=== PATIENT | female | born 1945 | race Caucasian/White ===

== ENCOUNTER 2017-08-13 13:51 | Emergency (ER) | payer MEDICARE ==
[2017-08-13 13:58] VITALS: TEMP 98.5; BMI 27.4
[2017-08-13] MEDS ORDERED: IBUPROFEN 600 MG TABLET (FP) PO ONE ×2 (14:09→14:17)
--- NOTE | 2017-08-13 14:09 | PDOC ---
History of Present Illness - History of Present Illness Initial Comments: 08/13/17 14:26 The patient is a 71 year old female, with a significant past medical history of schizophrenia, who presents to the emergency department with left shoulder pain s/p fall. Patient came to the ER after tripping over a curb earlier today and injuring her left shoulder. Patient states that she fell forward and injured her left shoulder. She states her shoulder pain was so severe that she was unable to ambulate immediately after and had to yell for assistance. She states that she normally is able to ambulate without assistance. She also has a scratch on the left side of her chin. She denies hitting head, LOC, denies neck pain, denies new back pain. She denies recent fevers, chills, headache or dizziness. She denies recent nausea, vomit, diarrhea or constipation. She denies recent dysuria, frequency, urgency or hematuria. She denies recent chest pain or shortness of breath. Allergies: NKA PCP: Dr. Jules Escobedo [phone] <Janet Ferrera - Last Filed: 08/13/17 16:25> <Clair Dee - Last Filed: 08/13/17 16:55> - General Chief Complaint: Pain, Acute Stated Complaint: left shoulder pain Past History <Janet Ferrera - Last Filed: 08/13/17 16:25> - Past Medical History Diabetes: Yes HTN: Yes - Suicide/Smoking/Psychosocial Hx Smoking History: Never smoked Hx Alcohol Use: No Drug/Substance Use Hx: No Substance Use Type: None <Clair Dee - Last Filed: 08/13/17 16:55> - Past Medical History Allergies/Adverse Reactions: Allergies Allergy/AdvReac Type Severity Reaction Status Date / Time Penicillins Allergy Verified 08/13/17 13:53 Home Medications: Ambulatory Orders Ibuprofen [Motrin -] 600 mg PO TID #90 tablet 08/13/17 Losartan Potassium [Cozaar] 25 mg PO DAILY 08/13/17 Metformin HCl [Glucophage] 1,000 mg PO BID 08/13/17 Review of Systems - Review of Systems Comments:: 08/13/17 14:26 GENERAL/CONSTITUTIONAL: No fever or chills. No weakness. HEAD, EYES, EARS, NOSE AND THROAT: No change in vision. No ear pain or discharge. No sore throat. GASTROINTESTINAL: No nausea, vomiting, diarrhea or constipation. GENITOURINARY: No dysuria, frequency, or change in urination. CARDIOVASCULAR: No chest pain or shortness of breath. RESPIRATORY: No cough, wheezing, or hemoptysis. MUSCULOSKELETAL: + left shoulder pain. No neck or back pain. SKIN: + superficial scratch on chin NEUROLOGIC: No headache, vertigo, loss of consciousness, or change in strength/ sensation. ENDOCRINE: No increased thirst. No abnormal weight change. HEMATOLOGIC/LYMPHATIC: No anemia, easy bleeding, or history of blood clots. ALLERGIC/IMMUNOLOGIC: No hives or skin allergy. <Janet Ferrera - Last Filed: 08/13/17 16:25> *Physical Exam - Vital Signs Last Vital Signs Temp Pulse Resp BP Pulse Ox 98.5 F 82 18 174/86 95 08/13/17 13:52 08/13/17 13:52 08/13/17 13:52 08/13/17 13:52 08/13/17 13:52 - Physical Exam Comments: 08/13/17 14:27 GENERAL: Awake, alert, and fully oriented, in no acute distress HEAD: Atraumatic. EYES: PERRLA, EOMI, sclera anicteric, conjunctiva clear ENT: Auricles normal inspection, nares patent, Moist mucosa NECK: No midline tenderness. Normal ROM, supple, no lymphadenopathy, JVD, or masses LUNGS: No chest wall tenderness. Breath sounds equal, clear to auscultation bilaterally. No wheezes, and no crackles. HEART: Regular rate and rhythm, normal S1 and S2, no murmurs, rubs or gallops ABDOMEN: Soft, nontender, normoactive bowel sounds. No guarding, no rebound. No masses EXTREMITIES: Left TTP decreased ROM secondary to pain. Pelvis intact. Hip FROM. Normal range of motion, no edema. No clubbing or cyanosis. No cords, erythema, or tenderness NEUROLOGICAL: Normal speech SKIN: Superficial abrasion on left side of chin. Warm, Dry, normal turgor. <Janet Ferrera - Last Filed: 08/13/17 16:25> - Vital Signs Last Vital Signs Temp Pulse Resp BP Pulse Ox 98.5 F 82 18 174/86 95 08/13/17 13:52 08/13/17 13:52 08/13/17 13:52 08/13/17 13:52 08/13/17 13:52 <Clair Dee - Last Filed: 08/13/17 16:55> ED Treatment Course - Medications Given in the ED: ED Medications Discontinued Medications Generic Name Dose Route Start Last Admin Trade Name Terese PRN Reason Stop Dose Admin Ibuprofen 600 mg 08/13/17 14:09 08/13/17 14:25 Motrin - PO 08/13/17 14:10 600 mg ONCE ONE Administration <Janet Ferrera - Last Filed: 08/13/17 16:25> Medical Decision Making - Medical Decision Making 08/13/17 14:08 71 yo F s/p trip and fall over curb. c/o left shoulder pain. no loc no head trauma.no neck or back tendernss. exam significant for left shoulder ttp. decr rom secondary to pain/ elbow and wrist nt nd. plan xray r/o fx. pain control. 08/13/17 16:32 xray pos humerus fx. pt given sling. ambulating without difficulty. d.w pcp dr paul. pedro see pt outpt. d/w noe. will see this week. social wrk for pat as she requesting help at home. <Clair Dee - Last Filed: 08/13/17 16:55> *DC/Admit/Observation/Transfer - Attestations Scribe Attestion: 08/13/17 14:27 Documentation prepared by Janet Ferrera, acting as medical technician assistant for Clair Dee MD. <Janet Ferrera - Last Filed: 08/13/17 16:25> <Clair Dee - Last Filed: 08/13/17 16:55> Diagnosis at time of Disposition: Humeral fracture - Discharge Dispostion Disposition: HOME Condition at time of disposition: Improved - Prescriptions Prescriptions: Ibuprofen [Motrin -] 600 mg PO TID #90 tablet - Referrals Referrals: Gilbert Sanchez MD [Staff Physician] - - Patient Instructions Printed Discharge Instructions: How to Use a Sling, DI for Humeral Fracture Additional Instructions: you should wear sling until follow up with dr sanchez. take motrin 600mg with food every 8 hrs as needed for pain. return for any problems or concerns.
[2017-08-13 16:52] VITALS: BP 148/80; PULSE 80
== END 2017-08-13 16:59 | disposition home or self-care (01) ==
LOC: FER 13:51
DX: S42.302A Unspecified fracture of shaft of humerus, left arm, initial encounter for closed fracture (principal); W18.39XA Other fall on same level, initial encounter; Y93.89 Activity, other specified; Y92.9 Unspecified place or not applicable; F20.9 Schizophrenia, unspecified; E11.9 Type 2 diabetes mellitus without complications; I10 Essential (primary) hypertension
CPT/HCPCS: 73030-TC-LT; 99282-25

== ENCOUNTER 2022-09-08 19:00 | Emergency (ER) | payer OTHER ==
[2022-09-08 19:18] VITALS: BP 150/73; PULSE 106; RESP 20; TEMP 98.6; BMI 27.3
[2022-09-08 21:19] LABS: HEMATOCRIT 36.9 % (32.4-45.2); HEMOGLOBIN 12.5 G/dL (10.7-15.3); MCH 28.8 pg (25.7-33.7); MCHC 33.8 g/dl (32.0-36.0); MEAN CELL VOLUME 85.1 fl (80-96); MEAN PLT VOLUME 7.3 fl (7.5-11.1); PLATELET COUNT 283.3 10^3/uL (134-434); RBC 4.34 10^6/uL (3.60-5.2); RDW 13.6 % (11.6-15.6); WHITE BLOOD COUNT 11.5 10^3/uL (4.0-10.8)
[2022-09-08 21:28] LABS: ALBUMIN 3.6 g/dl (3.4-5.0); BILIRUBIN,TOTAL 0.7 mg/dl (0.2-1); CALCIUM 9.6 mg/dl (8.5-10); CREATININE 0.8 mg/dl (0.55-1.3)
[2022-09-08 22:59] LABS: PLATELET ESTIMATE ADEQUATE
[2022-09-08 23:12] LABS: EPITHELIAL CELLS FEW /hpf
[2022-09-08] MEDS ORDERED: ACETAMINOPHEN 1000 MG/100 ML BAG IVPB ONE (23:33)
== END 2022-09-09 01:11 | disposition home or self-care (01) ==
LOC: FER 19:00
PROC: 3E033GC Introduction of Other Therapeutic Substance into Peripheral Vein, Percutaneous Approach (ICD-10-PCS; principal; 2022-09-08)
DX: H57.13 Ocular pain, bilateral (principal); U07.1 COVID-19
CPT/HCPCS: 0241U-QW; 36415; 70450-TC; 80053; 81003; 81015; 85027; 85651; 86140; 99284-25

== ENCOUNTER 2024-09-24 08:12 | Observation (INO) | payer OTHER ==
[2024-09-24 08:39] VITALS: BMI 22.8
[2024-09-24 09:06] LABS: INR 0.94 (0.83-1.09); PROTHROMBIN TIME (PATIENT) 10.7 SEC (9.7-13.0)
[2024-09-24 09:08] LABS: ACTIVATED PTT 30.9 SECONDS (25.2-36.5)
[2024-09-24 09:10] LABS: HEMATOCRIT 38.7 % (32.4-45.2); MCH 29.4 pg (25.7-33.7); MCHC 33.5 g/dl (32.0-36.0); MEAN CELL VOLUME 87.5 fl (80-96); MEAN PLT VOLUME 8.1 fl (7.5-11.1); PLATELET COUNT 279.4 10^3/uL (134-434); RBC 4.42 10^6/uL (3.60-5.2); RDW 13.2 % (11.6-15.6); WHITE BLOOD COUNT 7.4 10^3/uL (4.0-10.8)
[2024-09-24 09:15] LABS: PLATELET ESTIMATE ADEQUATE
[2024-09-24 09:20] LABS: ALBUMIN 4.1 g/dl (3.4-5.0); BILIRUBIN,TOTAL 0.6 mg/dl (0.2-1); CALCIUM 10.1 mg/dl (8.5-10.1); CREATININE 0.7 mg/dl (0.6-1.3); POTASSIUM 4.6 mmol/L (3.5-5.1); TOT PROT 6.4 g/dl (6.4-8.2)
[2024-09-24] MEDS: SODIUM CHLORIDE 0.9% 500 ML INFUS.BAG IV ONE (09:28)
[2024-09-24 09:33] LABS: EPITHELIAL CELLS 0-5 /hpf
[2024-09-24 11:00] LABS: N-TERMINAL BNP 169.4 pg/ml (5-450)
[2024-09-24 15:08] LABS: CHOLESTEROL 134 mg/dL (50-200); HDL CHOLESTEROL 51 mg/dL (40-60); LDL CHOLESTEROL (ONLY DFH) 66 mg/dL (5-100)
[2024-09-24] MEDS: INSULIN ASPART SLIDING SCALE (NOVOLOG) 1 VIAL SQ SCH (17:07)
[2024-09-24] MEDS: TIMOLOL 0.5% OPHTHALMIC SOL 5 ML BOTTLE OU SCH (21:37)
[2024-09-25] MEDS: metFORMIN HCL 500 MG TABLET (FP) PO SCH (06:26)
[2024-09-25 09:01] LABS: ALBUMIN 4.1 g/dl (3.4-5.0); BILIRUBIN,TOTAL 0.6 mg/dl (0.2-1); CALCIUM 10.5 mg/dl (8.5-10.1); CREATININE 0.7 mg/dl (0.6-1.3); MAGNESIUM 1.5 mg/dL (1.8-2.4); PHOSPHOROUS 3.3 (2.5-4.9); POTASSIUM 4.4 mmol/L (3.5-5.1); TOT PROT 6.4 g/dl (6.4-8.2)
[2024-09-25] MEDS ORDERED: MAGNESIUM SULF 50% (8.12 MEQ/2 ML-1 GM VIAL) IVPB ONE (09:33)
[2024-09-25] MEDS: NITROFURANTOIN MONOHYD/M-CRYST 100 MG CAPSULE PO SCH (09:35)
[2024-09-25] MEDS: ENOXAPARIN NA (PORCINE) 40 MG/0.4 ML DISP.SYRIN SQ SCH (09:35)
[2024-09-25] MEDS: LOSARTAN POTASSIUM 25 MG TABLET PO SCH (09:35)
[2024-09-25] MEDS: ASPIRIN 81 MG CHEWABLE TABLETS PO SCH (09:35)
[2024-09-25 09:46] LABS: BASO % 0.4 % (0-2.0); EOS % 4.7 % (0-4.5); HEMOGLOBIN 12.7 GM/dL (10.7-15.3); LYMPH % 22.3 % (8-40); MCH 29.9 pg (25.7-33.7); MCHC 34.3 g/dl (32.0-36.0); MEAN PLT VOLUME 7.8 fl (7.5-11.1); MONO % 7.6 % (3.8-10.2); PLATELET COUNT 286 10^3/uL (134-434); RBC 4.25 M/mm3 (3.60-5.2); RDW 12.9 % (11.6-15.6); WHITE BLOOD COUNT 7.7 K/mm3 (4.0-10.0)
[2024-09-25] MEDS ORDERED: TIMOLOL MALEATE 0.25% GEL OPHTHALMIC SOLN 5 ML BOTTLE OU SCH (10:00)
[2024-09-25] MEDS: fluPHENAZine DECANOATE 125 MG/5ML VIAL IM ONE (11:13)
[2024-09-25] MEDS: MAGNESIUM SULFATE IN WATER 2 GM/50 ML IVPB IVPB ONE (11:13)
[2024-09-25] MEDS ORDERED: fluPHENAZine DECANOATE 125 MG/5ML VIAL IM ONE (12:00)
[2024-09-25 14:15] VITALS: RESP 16
[2024-09-25 17:18] VITALS: BP 130/68; PULSE 80; TEMP 98.4
[2024-09-25] MEDS ORDERED: ARTIFICIAL TEARS OPHTHALMIC DROPS OU PRN (17:40)
[2024-09-25] MEDS ORDERED: FLUTICASONE PROP 0.05% 16 GM NASAL SPRAY NS SCH (22:00)
[2024-09-25] MEDS ORDERED: LATANOPROST 0.005% OPHTH SOLN 2.5ML BOTTLE OU SCH (22:00)
[2024-09-26] MEDS ORDERED: LACTOBACILLUS ACIDOPHILUS 1 TABLET PO SCH (10:00)
== END 2024-09-25 18:34 | disposition home or self-care (01) ==
LOC: FER 08:12 → FM/S 11:38 → UNDOADMOB 11:57 → FM/S 11:57
PROVIDERS: ADMIT Internal Medicine; ATTEND Internal Medicine
PROC: 3E033GC Introduction of Other Therapeutic Substance into Peripheral Vein, Percutaneous Approach (ICD-10-PCS; principal; 2024-09-24)
PROC: 3E023GC Introduction of Other Therapeutic Substance into Muscle, Percutaneous Approach (ICD-10-PCS; 2024-09-24)
PROC: 3E013GC Introduction of Other Therapeutic Substance into Subcutaneous Tissue, Percutaneous Approach (ICD-10-PCS; 2024-09-24)
DX: R42 Dizziness and giddiness (principal); I10 Essential (primary) hypertension; E11.9 Type 2 diabetes mellitus without complications; F25.9 Schizoaffective disorder, unspecified; Z88.0 Allergy status to penicillin; Z79.84 Long term (current) use of oral hypoglycemic drugs
CPT/HCPCS: 0241U-QW; 36415; 70450-TC; 70496-TC; 70498-TC; 70544-TC; 70551-TC; 71045-TC-FY; 80053; 80061; 81003; 81015; 82607; 82746; 82962; 83735; 83880; 84100; 84439; 84443; 84484; 85025; 85027; 85610; 85730; 93005; 93306-TC; 96365; 96372; 97116-GP; 97162-GP; 99285-25; G0378